=== PATIENT | female | born 1985 | race Caucasian/White ===

== ENCOUNTER 2020-12-06 13:15 | Emergency (ER) | payer MEDICAID ==
[~2020-12-06] VITALS: Ht 172.7 cm; Wt 164.7 kg
--- NOTE | 2020-12-06 13:37 | NUR ---
FIRST CONTACT: vaginal cyst, has already popped and is draining. +pain and swelling. PT TO ROOM WITH STEADY GAIT. ATTACHED TO MONITORS. ALBINO.
[2020-12-06 13:53] VITALS: BP 141/92
--- NOTE | 2020-12-06 13:54 | NUR ---
SAMANTHA PERSAUD TO BEDSIDE FOR EXAM WITH THIS RN. VSS. ARIAS
== END 2020-12-06 14:26 | disposition home or self-care (01) ==
LOC: ED 14:15
DX: N76.4 Abscess of vulva (principal)
CPT/HCPCS: 99283